=== PATIENT | male | born 1990 | race African-American/Black ===

== ENCOUNTER 2023-10-22 01:00 | Emergency (ER) | payer OTHER ==
[2023-10-22 01:08] VITALS: BP 130/86; PULSE 71; RESP 17; TEMP 98.2; BMI 32.1
[2023-10-22] MEDS ORDERED: DIPHTH,PERTUSS(ACELL),TET 0.5 ML DISP.SYRIN IM ONE (02:03)
[2023-10-22] MEDS ORDERED: ACETAMINOPHEN 500 MG TABLET (FP) ONE (02:03)
[2023-10-22] MEDS ORDERED: AMOX TR/POT CLAV 875MG/125MG TABLETS (FP) ONE (02:03)
[2023-10-22] MEDS: DIPHTH,PERTUSS(ACELL),TET 0.5 ML DISP.SYRIN IM ONE (02:13)
[2023-10-22] MEDS: ACETAMINOPHEN 500 MG TABLET (FP) PO ONE (02:15)
[2023-10-22] MEDS: AMOX TR/POT CLAV 875MG/125MG TABLETS (FP) PO ONE (02:15)
== END 2023-10-22 02:24 | disposition home or self-care (01) ==
LOC: FER 01:00
PROC: 0XQWXZZ Repair Left Little Finger, External Approach (ICD-10-PCS; principal; 2023-10-22)
PROC: 3E0234Z Introduction of Serum, Toxoid and Vaccine into Muscle, Percutaneous Approach (ICD-10-PCS; 2023-10-22)
DX: S61.216A Laceration without foreign body of right little finger without damage to nail, initial encounter (principal); W54.0XXA Bitten by dog, initial encounter; Z23 Encounter for immunization
CPT/HCPCS: 12002-25; 90471; 90715; 99284-25

== ENCOUNTER 2023-11-03 00:04 | Emergency (ER) | payer OTHER ==
[2023-11-03 00:09] VITALS: BP 143/87; PULSE 61; RESP 18; TEMP 98.8; BMI 32.1
== END 2023-11-03 00:57 | disposition home or self-care (01) ==
LOC: FER 00:04
DX: Z48.02 Encounter for removal of sutures (principal)
CPT/HCPCS: 99281-25